=== PATIENT | male | born 1990 | race Caucasian/White ===

== ENCOUNTER 2018-08-27 22:41 | Observation (INO) ==
--- NOTE | 2018-08-27 23:01 | ED ---
HPI General Chief Complaint: Seizure Stated Complaint: Seizure Time Seen by Provider: 08/27/18 22:57 Source: patient and EMS Mode of arrival: EMS Limitations: no limitations History of Present Illness HPI Narrative: 27-year-old male patient who is previously healthy presents to the ER today brought in by EMS because parents states that they had witnessed the patient had becoming unresponsive, going down, had seizure-like activity for several minutes, and then was unresponsive. Parents thought that he may be he was not breathing and started CPR on him when EMS got to the scene, he was disoriented, and within about 5-10 minutes started to wake up and he is currently awake and alert in the ER. He does not remember what happened. He denies any injuries. He has not had any previous seizures history. He denies any alcohol use or recreational drug use. Modifying Factors: None Associated Signs & Symptoms: New onset seizure Risk Factors: None Related Data Home Medications Medication Instructions Recorded Confirmed No Known Home Medications 08/27/18 08/27/18 Allergies Allergy/AdvReac Type Severity Reaction Status Date / Time No Known Allergies Allergy Uncoded 05/11/14 17:16 Review of Systems ROS: all other systems reviewed are negative [facility] Medical History Medical History Patient denies medical problems (Acute) Surgical History Surgical History No history of previous surgery (Acute) Social History Social History Substance History: No History of Abuse Second Hand Smoke Exposure: No Smoking Status: Never smoker How Often Do You Have a Drink Containing Alcohol: Never Recent Travel in [facility] within the Last 8 Weeks: No Recent Out of Country Travel within the Last 8 Weeks: No Immunization History Tetanus Immunization: <5 Years Exam Narrative Exam Narrative: GENERAL: Well-developed young white male patient currently in mild distress. Awake and oriented x3. SKIN: Focused skin assessment warm/dry. HEAD: Atraumatic. Normocephalic. EYES: Pupils equal and round. No scleral icterus. No injection or drainage. ENT: No nasal bleeding or discharge. Mucous membranes pink and moist. NECK: Trachea midline. No JVD. CARDIOVASCULAR: Regular rate and rhythm. No murmur appreciated. RESPIRATORY: No accessory muscle use. Clear to auscultation. Breath sounds equal bilaterally. GASTROINTESTINAL: Abdomen soft, non-tender, nondistended. Hepatic and splenic margins not palpable. MUSCULOSKELETAL: No obvious deformities. No clubbing. No cyanosis. No edema. NEUROLOGICAL: Awake and alert. No obvious cranial nerve deficits. Motor grossly within normal limits. Normal speech. PSYCHIATRIC: Appropriate mood and affect; insight and judgment normal. Course Initial Documented Vital Signs Temperature 98.5 F 08/27/18 22:53 Pulse Rate 81 08/27/18 22:53 Respiratory Rate 15 08/27/18 22:53 Blood Pressure 135/81 08/27/18 22:53 Pulse Oximetry 96 08/27/18 22:53 Last Documented Vital Signs Temperature 98.5 F 08/27/18 22:53 Pulse Rate 83 08/27/18 22:56 Respiratory Rate 15 08/27/18 22:56 Blood Pressure 135/81 08/27/18 22:56 Pulse Oximetry 98 08/27/18 22:59 Medical Decision Making MDM Narrative Medical decision making narrative: EKG did not show any signs at this arrhythmia is. Lab work was fairly unremarkable. CT the brain was negative for any signs of any acute intracranial processes. Case is discussed with patient's parents who had witnessed the incident. Symptoms are most consistent with a seizure. However, patient has not had any previous history. At this point, my plan would be to admit him for further evaluation of new onset seizures. Case is discussed with Dr. Marroquin who is covering for [facility] to be admitted. Medical Screen Exam Complete: Yes Emergency Medical Condition: Yes Differential Diagnosis Differential Diagnosis: New onset seizure versus electrolyte abnormalities versus dysrhythmias Lab Data Lab results reviewed: Yes I reviewed the patient's lab results. Result diagrams: 08/27/18 23:02 08/27/18 23:02 Lab Results 08/27/18 08/27/18 08/28/18 Range/Units 23:02 23:02 00:01 WBC 5.6 (4.0-11.0) th/mm3 RBC 4.86 (4.50-5.90) mil/mm3 Hgb 15.7 (13.0-17.0) gm/dL Hct 43.2 (39.0-51.0) % MCV 88.8 (80.0-100.0) fL MCH 32.3 (27.0-34.0) pg MCHC 36.4 H (32.0-36.0) % RDW 12.6 (11.6-17.2) % Plt Count 194 (150-450) th/mm3 MPV 9.5 (7.0-11.0) fL Prelim Diff (Auto) Slide review pending Neut % (Auto) 49.1 (16.0-70.0) % Lymph % (Auto) 38.5 (9.0-44.0) % [place] % (Auto) 7.3 (0.0-8.0) % Eos % (Auto) 3.1 (0.0-4.0) % Baso % (Auto) 2.0 (0.0-2.0) % Neut # (Auto) 2.7 (1.8-7.7) th/mm3 Lymph # (Auto) 2.1 (1.0-4.8) th/mm3 [place] # (Auto) 0.4 (0.0-0.9) th/mm3 Eos # (Auto) 0.2 (0.0-0.4) th/mm3 Baso # (Auto) 0.1 (0.0-0.2) th/mm3 WBC Differential . Diff Scan Auto diff confirmed Differential Comment . Platelet Estimate Normal (Normal) Platelet Morphology Normal (Normal) Sodium 140 (136-145) meq/L Potassium 3.2 L (3.5-5.1) meq/L Chloride 104 (98-107) meq/L Carbon Dioxide 25.8 (21.0-32.0) meq/L Anion Gap 10 (5-15) meq/L BUN 19 H (7-18) mg/dL Creatinine 1.21 (0.60-1.30) mg/dL Estimated GFR 73 L (>89) mL/min Random Glucose 99 (74-106) mg/dL Calcium 9.1 (8.5-10.1) mg/dL Magnesium 2.3 (1.5-2.5) mg/dL Urine Opiates Screen Neg (Neg) Ur Barbiturates Screen Neg (Neg) Ur Amphetamines Screen Neg (Neg) U Benzodiazepines Scrn Neg (Neg) Urine Cocaine Screen Neg (Neg) U Cannabinoids Screen Neg (Neg) Serum Alcohol Less than 3 (0-5) mg/dL Imaging Data Attestation: I personally reviewed and interpreted this imaging study as follows : Radiologist's impression: Head CT 08/27/18 22:58 CONCLUSION: 1. Negative CT Head non contrast. . ECG Data Attestation: I personally reviewed and interpreted this ECG as follows: Interpretation: EKG shows NSR, no ST elevation or depression, and no arrhythmias. No significant T-wave inversions. Discharge Plan Discharge Disposition Patient Disposition: ED Admit(ED Internal Use Only) Discharge Condition Condition: Stable Discharge Order Discharge Orders: ED Use Only Admit Order (Routine); Ordered 08/28/18 Ordered By: Meli Davenport Discharge Details Anticipated Discharge Date: 08/28/18 Diagnosis: New onset seizure Physicians Team ED Provider: Meli Davenport Primary Care Provider: Von Ledesma Rxs /Orders / Referrals /Forms Prescriptions: No Action No Known Home Medications RF: 0 Discharge Interventions Interventions: Vital Signs Last Done: 08/27/18 22:56 Status ED Status: With Doctor
[2018-08-27 23:18] LABS: Baso # (Auto) 0.1 th/mm3 (0.0-0.2); Eos # (Auto) 0.2 th/mm3 (0.0-0.4); Eos % (Auto) 3.1 % (0.0-4.0); Hematocrit 43.2 % (39.0-51.0); Hemoglobin 15.7 gm/dL (13.0-17.0); Lymph # (Auto) 2.1 th/mm3 (1.0-4.8); Lymph % (Auto) 38.5 % (9.0-44.0); Mean Corpuscular Hemoglobin 32.3 pg (27.0-34.0); Mean Corpuscular Volume 88.8 fL (80.0-100.0); Mean Platelet Volume 9.5 fL (7.0-11.0); Mono # (Auto) 0.4 th/mm3 (0.0-0.9); Mono % (Auto) 7.3 % (0.0-8.0); Neut # (Auto) 2.7 th/mm3 (1.8-7.7); Neut % (Auto) 49.1 % (16.0-70.0); Platelet Count 194 th/mm3 (150-450); Red Blood Count 4.86 mil/mm3 (4.50-5.90); Red Cell Distribution Width 12.6 % (11.6-17.2); White Blood Count 5.6 th/mm3 (4.0-11.0)
[2018-08-27 23:19] LABS: Mean Corpuscular HGB Conc 36.4 % (32.0-36.0)
--- NOTE | 2018-08-27 23:20 | CT ---
EXAM DATE: 08/27/2018 11:16 PM EST AGE/SEX: 27 years / Male INDICATIONS: Syncope, seizure. CLINICAL DATA: This is the patient's initial encounter. Patient reports that signs and symptoms have been present for 1 day and indicates a pain score of 0/10. MEDICAL/SURGICAL HISTORY: None. None. RADIATION DOSE: 56.35 CTDI (mGy) COMPARISON: No prior exams available for comparison. TECHNIQUE: CT of the head without contrast. Using automated exposure control and adjustment of the mA and/or kV according to patient size, radiation dose was kept as low as reasonably achievable to ob tain optimal diagnostic quality images. DICOM format image data is available electronically for revi ew and comparison. FINDINGS: Cerebrum: The ventricles are normal for age. No evidence of midline shift, mass lesion, hemorrhage or acute infarction. No extraaxial fluid collections are seen. Posterior Fossa: The cerebellum and brainstem are intact. The 4th ventricle is midline. The cerebe llopontine angle is unremarkable. Extracranial: The visualized portion of the orbits is intact. Skull: The calvaria is intact. No evidence of skull fracture. CONCLUSION: 1. Negative CT Head non contrast. . Electronically signed by: Justin Yost MD Board Certified Radiologist 08/27/2018 11:18 PM EST
[2018-08-27 23:44] LABS: Anion Gap 10 meq/L (5-15); Blood Urea Nitrogen 19 mg/dL (7-18); Calcium 9.1 mg/dL (8.5-10.1); Carbon Dioxide 25.8 meq/L (21.0-32.0); Chloride 104 meq/L (98-107); Glomerular Filtration Rate 73 mL/min (>89); Glucose,Random 99 mg/dL (74-106); Magnesium 2.3 mg/dL (1.5-2.5); Potassium 3.2 meq/L (3.5-5.1); Sodium 140 meq/L (136-145)
[2018-08-27 23:52] LABS: Platelet Estimate Normal (Normal); Platelet Morphology Normal (Normal)
[2018-08-28 00:46] LABS: Amphetamine Screen,Urine Neg (Neg); Barbiturate Screen,Urine Neg (Neg); Cannabinoid Screen,Urine Neg (Neg); Cocaine Screen,Urine Neg (Neg)
[2018-08-28 00:47] LABS: Opiate Screen,Urine Neg (Neg)
--- NOTE | 2018-08-28 08:33 | ECG ---
Date Performed: 08/27/2018 Time Performed: 23:08:35 PTAGE: 27 years EKG: Sinus rhythm RIGHT BUNDLE BRANCH BLOCK ABNORMAL ECG NO PREVIOUS TRACING DOCTOR: Justin Nicholson Interpretating Date/Time 08/28/2018 08:32:57
--- NOTE | 2018-08-28 11:07 | P.HPIM ---
History of Present Illness Primary Care Physician: Von Ledesma MD Chief Complaint: possible seizure History of Present Illness: This is a 27 year old male patient who denies past medical history, denies illicit drug use, denies ETOH use and denies prior seizures. Patient presented to the ER last night with his parents for possible seizure. Patient does not recall the event. Information gathered from prior charting. Per ER report patient's parents stated that they had witnessed the patient becoming unresponsive, going down, had seizure-like activity for several minutes, and then was unresponsive. Parents thought that he maybe he was not breathing and started CPR on him. When EMS got to the scene, he was disoriented and combative. Patient started to wake up and he was awake and alert in the ER. He does not remember what happened. He denies any injuries. PMH: patient denies prior medical history PSxH: patient denies prior surgeries Social history: denies ETOH use, tobacco use or illicit drug use FMH: reviewed and noncontributory. Denies family history of seizures Medications and Allergies Allergies Allergy/AdvReac Type Severity Reaction Status Date / Time No Known Allergies Allergy Uncoded 05/11/14 17:16 Home Medications Medication Instructions Recorded Confirmed Type No Known Home Medications 08/27/18 08/27/18 History Active Medications: Active Medications Sodium Chloride (Ns Flush) 2 ml IV.FLUSH PRN PRN PRN Reason: FLUSH AFTER USING IV ACCESS Physical Exam Vital signs: Last Vital Signs Temp 98 F 08/28/18 07:33 Pulse 67 08/28/18 07:33 Resp 18 08/28/18 07:33 BP 107/66 08/28/18 07:33 Pulse Ox 97 08/28/18 07:33 Narrative: GENERAL: This is a well-nourished, well-developed patient, in no apparent distress. CARDIOVASCULAR: Regular rate and rhythm RESPIRATORY: Clear to auscultation. Breath sounds equal bilaterally. No wheezes , rales, or rhonchi. GASTROINTESTINAL: Abdomen soft, non-tender, nondistended. Normal active bowel sounds MUSCULOSKELETAL: Extremities without clubbing, cyanosis, or edema. NEURO: Alert & Oriented x4 to person, place, time, situation. Moves all ext x4 Results Labs CBC & Chem 7: 08/27/18 23:02 08/27/18 23:02 Caprini VTE Risk Assessment Caprini VTE Risk Assessment: No/Low Risk (score <= 1) Caprini Risk Assessment Model: Point Value = 1 Point Value = 2 Point Value = 3 Point Value = 5 Age 41-60 Minor surgery BMI > 25 kg/m2 Swollen legs Varicose veins or History of unexplained or recurrent spontaneous Oral contraceptives or hormone replacement Sepsis (< 1 month) Serious lung disease, including pneumonia (< 1 month) Abnormal pulmonary function Acute myocardial infarction Congestive heart failure (< 1 month) History of inflammatory bowel disease Medical patient at bed rest Age 61-74 Arthroscopic surgery Major open surgery (> 45 min) Laparoscopic surgery (> 45 min) Malignancy Confined to bed (> 72 hours) Immobilizing plaster cast Central venous access Age >= 75 History of VTE Family history of VTE Factor V Leiden Prothrombin [id number] Lupus anticoagulant Anticardiolipin antibodies Elevated serum homocysteine Heparin-induced thrombocytopenia Other congenital or acquired thrombophilia Stroke (< 1 month) Elective arthroplasty Hip, pelvis, or leg fracture Acute spinal cord injury (< 1 month) Prophylaxis Regimen: Total Risk Factor Score Risk Level Prophylaxis Regimen 0-1 Low Early ambulation 2 Moderate Order ONE of the following: *Sequential Compression Device (SCD) *Heparin 5000 units SQ BID 3-4 Higher Order ONE of the following medications: *Heparin 5000 units SQ TID *Enoxaparin/Lovenox 40 mg SQ daily (WT < 150 kg, CrCl > 30 mL/min) *Enoxaparin/Lovenox 30 mg SQ daily (WT < 150 kg, CrCl > 10-29 mL/min) *Enoxaparin/Lovenox 30 mg SQ BID (WT < 150 kg, CrCl > 30 mL/min) AND/OR *Sequential Compression Device (SCD) 5 or more Highest Order ONE of the following medications: *Heparin 5000 units SQ TID (Preferred with Epidurals) *Enoxaparin/Lovenox 40 mg SQ daily (WT < 150 kg, CrCl > 30 mL/min) *Enoxaparin/Lovenox 30 mg SQ daily (WT < 150 kg, CrCl > 10-29 mL/min) *Enoxaparin/Lovenox 30 mg SQ BID (WT < 150 kg, CrCl > 30 mL/min) AND *Sequential Compression Device (SCD) Assessment and Plan Plan This is a 27 year old male patient who denies past medical history, denies illicit drug use, denies ETOH use and denies prior seizures. Patient presented to the ER last night with his parents for possible seizure. Patient does not recall the event. Information gathered from prior charting. Per ER report patient's parents stated that they had witnessed the patient becoming unresponsive, going down, had seizure-like activity for several minutes, and then was unresponsive. Parents thought that he maybe he was not breathing and started CPR on him. When EMS got to the scene, he was disoriented and combative. Patient awoke within about 5-10 minutes started to wake up and he was awake and alert in the ER. He does not remember what happened. He denies any injuries. Patient also denies recent Possible new onset Seizures Head CT 08/27/[address] Head non contrast. Head MRI 08/28/18 1. Negative MR Brain non contrast. Seizure precautions EEG Ativan if needed for seizure Toxicology negative serum alcohol < 3 Consult to neurology Hypokalemia Potassium 3.2 on admission replaced DVT prophylaxis with SCDs Attending Attestation The exam, history, and the medical decision-making described in the above note were completed with the assistance of the mid-level provider. I reviewed and agree with the findings presented. I attest that I had a [id number] encounter with the patient on the same day, and personally performed and documented my assessment and findings in the medical record. Patient examined. Assessment and plan formulated with Velia Mohamud PA-C. I agree with the above. H&P: Quality VTE Deep Vein Thrombosis/Pulmonary Embolism Present on Admission: No
--- NOTE | 2018-08-28 13:03 | MR ---
EXAM DATE: 08/28/2018 12:57 PM EST AGE/SEX: 27 years / Male INDICATIONS: . New onset seizures. CLINICAL DATA: This is the patient's subsequent encounter. Patient reports that signs and symptoms h ave been present for 1 day and indicates a pain score of 0/10. MEDICAL/SURGICAL HISTORY: None. . Tympanostomy tubes. COMPARISON: [facility] [place], CT HEAD W/O CONTRAST, 08/27/2018. . TECHNIQUE: Multiplanar, multisequence examination of the brain was performed without contrast. FINDINGS: Cerebrum: The ventricles are normal for age. No evidence of midline shift, mass lesion, hemorrhage or acute infarction. No extraaxial fluid collections are seen. The pituitary gland and suprasellar cistern are normal in configuration. White Matter: No significant signal abnormalities are seen in the white matter. Posterior Fossa: The cerebellum and brainstem are intact. The 4th ventricle is midline. The cerebel lopontine angle is unremarkable. The cerebellar tonsils are normal in position. Diffusion Imaging: No focal areas of restricted diffusion are seen. No evidence of acute infarction . Extracranial: The visualized portions of the orbits and paranasal sinuses are unremarkable. CONCLUSION: 1. Negative MR Brain non contrast. Electronically signed by: Shahab Suarez MD Board Certified Radiologist 08/28/2018 1:02 PM EST
--- NOTE | 2018-08-28 16:55 | P.CONNEU ---
History of Present Illness Service: Neurology Primary Care Provider: Von Ledesma MD Chief Complaint: possible seizure History of Present Illness: 27-year-old male admitted for possible seizure activity. [facility] by his parents yesterday evening making grunting type sounds fully open the door to his room in some is on the floor having clonic type of activity eyes rolled back frothing at the mouth reduced responsiveness. EVAC was called. He will be confused slightly agitated upon arrival. Brought in further evaluation. No further events overnight. He does not recollect the event does not recollect having any aura prior to the episode. MRI brain scan normal. Glucose calcium sodium magnesium normal. Slightly low potassium. Urine drug screen negative. Denies any illicit drug use or any sleep deprivation. No history of seizure activity history of head injury although has had couple concussions playing basketball in school in the past. No history of febrile seizures no family history of seizures no history of [employer]CHNICIAN infection. Review of Systems All other systems reviewed negative except as stated in HPI PMFSH - History History Provided By: Patient - Medical History Medical History: Medical History (Last Reviewed 08/27/18 @ 23:00 by Meli Davenport MD) Patient denies medical problems - Surgical History Surgical History: Surgical History (Last Reviewed 08/27/18 @ 23:00 by Meli Davenport MD) No history of previous surgery - Tobacco History Second Hand Smoke Exposure: No Tobacco Use In Past 30 Days: No Smoking Status: Never smoker - Alcohol History How Often Do You Have a Drink Containing Alcohol: Monthly or less - Substance Use History Substance History: No History of Abuse - Travel History Recent Travel in the [facility] Within the Last 8 Weeks: No Recent Travel Out of the Country Within the Last 8 Weeks: No - Immunization History Tetanus Immunization: <5 Years Medications and Allergies Active Medications: Active Medications Lorazepam (Ativan Inj) 1 mg IV.PUSH Q4H PRN PRN Reason: SEIZURES Sodium Chloride (Ns Flush) 2 ml IV.FLUSH PRN PRN PRN Reason: FLUSH AFTER USING IV ACCESS Allergies Allergy/AdvReac Type Severity Reaction Status Date / Time No Known Allergies Allergy Uncoded 05/11/14 17:16 Home Medications Medication Instructions Recorded Confirmed Type No Known Home Medications 08/27/18 08/27/18 History Exam Vital signs: Vital Signs 08/27/18 22:53 08/27/18 22:56 08/27/18 22:59 Temperature 98.5 F Pulse Rate 81 83 Respiratory Rate 15 15 Blood Pressure 135/81 135/81 Pulse Oximetry 96 98 98 08/28/18 02:36 08/28/18 03:39 08/28/18 06:44 Temperature 97.9 F 97.3 F L Pulse Rate 74 70 63 Respiratory Rate 17 16 16 Blood Pressure 134/70 119/72 118/63 Pulse Oximetry 97 97 96 08/28/18 07:33 08/28/18 11:52 Temperature 98 F 97.2 F L Pulse Rate 67 66 Respiratory Rate 18 18 Blood Pressure 107/66 118/57 L Pulse Oximetry 97 97 Intake & Output 08/27/18 08/28/18 08/28/18 18:59 06:59 18:59 Weight 72.575 kg Other: # Voids 1 Date of Last Bowel Movement 08/27/18 08/27/18 Weight On Admission 72.575 kg Narrative: GENERAL: in NAD, SKIN: Warm and dry. HEAD: Atraumatic. Normocephalic. EYES: Pupils equal and round. No scleral icterus. ENT: No nasal bleeding or discharge. Mucous membranes pink and moist. NECK: Trachea midline. No JVD. RESPIRATORY: No accessory muscle use. GASTROINTESTINAL: Abdomen soft, non-tender, nondistended. MUSCULOSKELETAL: Extremities without clubbing, cyanosis, or edema. No obvious deformities. NEUROLOGICAL: Awake and alert. No aphasia, fluent articulate, No facial asymmetry, OU 3-2mm, eomi, VFF, No drift, Motor grossly within normal limits. Five out of 5 muscle strength in the arms and legs. Tone normal in all 4 limbs, Sensory normal in all 4 extremities to pin, brisk reflexes 2-3+ left leg slightly brisker than the right knee jerk Msr 1-2+ sym, no clonus, planterflexor , PSYCHIATRIC: Appropriate mood and affect; insight and judgment normal. - Constitutional no acute distress - Routine HEENT Exam Head: Present: normocephalic Eye: Present: EOMI Results - Labs CBC & Chem 7: 08/27/18 23:02 08/27/18 23:02 Labs: Laboratory Results - last 24 hr 08/27/18 08/27/18 08/28/18 23:02 23:02 00:01 WBC 5.6 RBC 4.86 Hgb 15.7 Hct 43.2 MCV 88.8 MCH 32.3 MCHC 36.4 H RDW 12.6 Plt Count 194 MPV 9.5 Prelim Diff (Auto) Slide review pending Neut % (Auto) 49.1 Lymph % (Auto) 38.5 [place] % (Auto) 7.3 Eos % (Auto) 3.1 Baso % (Auto) 2.0 Neut # (Auto) 2.7 Lymph # (Auto) 2.1 [place] # (Auto) 0.4 Eos # (Auto) 0.2 Baso # (Auto) 0.1 WBC Differential . Diff Scan Auto diff confirmed Differential Comment . Platelet Estimate Normal Platelet Morphology Normal Sodium 140 Potassium 3.2 L Chloride 104 Carbon Dioxide 25.8 Anion Gap 10 BUN 19 H Creatinine 1.21 Estimated GFR 73 L Random Glucose 99 Calcium 9.1 Magnesium 2.3 Urine Opiates Screen Neg Ur Barbiturates Screen Neg Ur Amphetamines Screen Neg U Benzodiazepines Scrn Neg Urine Cocaine Screen Neg U Cannabinoids Screen Neg Serum Alcohol Less than 3 - Imaging Impressions Head CT 08/27/18 22:58 CONCLUSION: 1. Negative CT Head non contrast. . Head MRI 08/28/18 00:00 CONCLUSION: 1. Negative MR Brain non contrast. Review/Management - Diagnosis (1) New onset seizure Code(s): R56.9 - Unspecified convulsions Status: Acute Current Visit: Yes - Review/Management Plan: New onset seizure unprovoked with no family history EEG demonstrating frontal sharp waves occurring paroxysmally. Probable underlying tendency towards epilepsy Recommendations We will start Lamictal 25 mg twice daily Side effects benefits discussed medication including Dunlap-Yomi syndrome with rash, liver dysfunction, mood changes, etc. Patient and father agree to treatment Give 1 dose of Ativan tonight po Stable no further episodes discharge planning in the a.m. follow-up in the outpatient setting Seizure precaution No driving, operating any heavy machinery or dangerous machinery, swimming alone for at least 6 months of being seizure, spell free.
--- NOTE | 2018-08-28 17:29 | MG ---
cc: Ehsan Sommer MD EEG #[id number]. INDICATION: Good posterior rhythm, 8-9 Hz alpha activity, 20-50 microvolts, low-amplitude beta in the frontal channels. Good anterior to posterior gradient. Paroxysmal frontal sharp transients noted. Frontal sharp waves. possible frontal spike wave 78. Went into drowsy stage I sleep, reduced driving and photic stimulation and began the recording. Nasir wave discharge noted 19. INTERPRETATION: Paroxysmal frontally dominated sharp discharges occurring. However, no active seizures, awake/sleep electroencephalogram. Clinical correlation. MD ERON Elizabeth/deshaun/tim , 04:33 PM , 04:39 PM
[2018-08-28 19:05] LABS: Thyroid Stimulating Hormone 0.975 uIU/mL (0.358-3.740); Vitamin B12 1028 pg/mL (193-986)
[2018-08-28] MEDS: lamoTRIgine 25 MG TABLET PO SCH (20:45)
[2018-08-28] MEDS ORDERED: LORazepam 1 MG Tablet PO ONE (21:00)
[2018-08-29] MEDS: lamoTRIgine 25 MG TABLET PO SCH (08:20)
--- NOTE | 2018-08-29 11:45 | P.DS ---
DS: Providers Date of admission: 08/28/18 01:38 Primary care physician: Von Ledesma MD Consults: 08/28/18 10:16 Consult to Neurology Routine Consulting Provider: Ehsan Sommer Reason for Consultation: New onset Seizures Notified:: Office Spoke with:: abebe Date Notified:: 08/28/18 Time Notified:: 10:20 Ordering Provider: LIANNA Brief History from admission: This is a 27 year old male patient who denies past medical history, denies illicit drug use, denies ETOH use and denies prior seizures. Patient presented to the ER last night with his parents for possible seizure. Patient does not recall the event. Information gathered from prior charting. Per ER report patient's parents stated that they had witnessed the patient becoming unresponsive, going down, had seizure-like activity for several minutes, and then was unresponsive. Parents thought that he maybe he was not breathing and started CPR on him. When EMS got to the scene, he was disoriented and combative. Patient started to wake up and he was awake and alert in the ER. He does not remember what happened. He denies any injuries. PMH: patient denies prior medical history PSxH: patient denies prior surgeries Social history: denies ETOH use, tobacco use or illicit drug use FMH: reviewed and noncontributory. Denies family history of seizures DS: Diagnosis Discharge Diagnosis (1) New onset seizure: Status: Acute DS: Summary This is a 27 year old male patient who denies past medical history, denies illicit drug use, denies ETOH use and denies prior seizures. Patient presented to the ER last night with his parents for possible seizure. Patient does not recall the event. Information gathered from prior charting. Per ER report patient's parents stated that they had witnessed the patient becoming unresponsive, going down, had seizure-like activity for several minutes, and then was unresponsive. Parents thought that he maybe he was not breathing and started CPR on him. When EMS got to the scene, he was disoriented and combative. Patient awoke within about 5-10 minutes started to wake up and he was awake and alert in the ER. He does not remember what happened. He denies any injuries. Patient also denies recent New onset Seizures Head CT 08/27/[address] Head non contrast. Head MRI 08/28/18 1. Negative MR Brain non contrast. Seizure precautions Ativan if needed for seizure Toxicology negative serum alcohol < 3 Consult to neurology, appreciated input EEG demonstrating frontal sharp waves occurring paroxysmally. Probable underlying tendency towards epilepsy Neurology Recommendations Lamictal 25 mg twice daily Side effects benefits discussed medication including Dunlap-Yomi syndrome with rash, liver dysfunction, mood changes, etc. Patient and father agree to treatment Stable no further episodes discharge planning in the a.m. follow-up in the outpatient setting Seizure precaution No driving, operating any heavy machinery or dangerous machinery, swimming alone Hypokalemia Potassium 3.2 on admission replaced The exam, history, and the medical decision-making described in the above note were completed with the assistance of the mid-level provider. I reviewed and agree with the findings presented. I attest that I had a [id number] encounter with the patient on the same day, and personally performed and documented my assessment and findings in the medical record. Patient examined. Assessment and plan formulated with Velia Mohamud PA-C. I agree with the above. Case d/w pt and father at bedside. Pt instructed NO driving until seizure free for 6 months or otherwise cleared to drive by Neurology, Dr. Perez. Pt also instructed NO swimming alone, NO baths, NO use of heavy machinery. No use of electric/automatic saws or other cutting devices. Pt started on lamictal 25mg BID to be further titrated by Neurology, dr. Perez. Pt to f/u with Dr. Perez in 1-2 weeks. All questions answered to the best of my ability. Time Spent with Patient Total time spent providing and/or coordinating discharge services: Quality: VTE Deep Vein Thrombosis/Pulmonary Embolism Present on Admission: No Exam Narrative Exam Narrative: GENERAL: This is a well-nourished, well-developed patient, in no apparent distress. CARDIOVASCULAR: Regular rate and rhythm without murmurs, gallops, or rubs. RESPIRATORY: Clear to auscultation. Breath sounds equal bilaterally. No wheezes , rales, or rhonchi. GASTROINTESTINAL: Abdomen soft, non-tender, nondistended. Normal active bowel sounds MUSCULOSKELETAL: Extremities without clubbing, cyanosis, or edema. NEURO: Alert & Oriented x4 to person, place, time, situation. Moves all ext x4 Results Labs on day of discharge: Labs from last 24 hours 08/28/18 08/28/18 17:51 17:51 Ammonia Less than 10 L Vitamin B12 1028 H Folate Greater than 20.0 H TSH 0.975 Impressions ITS Impressions Head CT 08/27/18 22:58 CONCLUSION: 1. Negative CT Head non contrast. . Head MRI 08/28/18 00:00 CONCLUSION: 1. Negative MR Brain non contrast. Discharge Plan Discharge Disposition Patient Disposition: 01 Discharge Home Discharge Condition Condition: Stable Discharge Order Discharge Orders: Discharge Order (Routine); Ordered 08/29/18 Ordered By: Velia Mohamud Discharge Details Anticipated Discharge Date: 08/29/18 Physicians Team ED Provider: Meli Davenport Primary Care Provider: Von Ledesma Attending Provider: Santos Gastelum Other Providers: Ehsan Sommer Rxs /Orders / Referrals /Forms Prescriptions: New lamotrigine [Lamictal] 25 mg Tablet 25 mg PO BID 30 Days Qty: 60 RF: 0 clonazepam [Klonopin] 1 mg tablet 1 mg PO QID PRN (Reason: seizure activity) Qty: 7 RF: 0 No Action No Known Home Medications RF: 0 Referrals: Von Ledesma MD [Primary Care Provider] - See Instructions (follow up in 1 week) Ehsan Sommer MD [Physician] - See Instructions (Follow up in 1 week) Discharge Instructions Patient Printed Instructions: Lamotrigine (By mouth), New-Onset Seizure in Adults (DC) Additional Instructions: No driving, operating any heavy machinery or dangerous machinery, swimming alone until cleared by Dr. Sommer Status ED Status: Left Department
== END 2018-08-29 13:03 | disposition home or self-care (01) ==
LOC: NEPC 22:41 → NEDA 22:41 → NEPGCP 08-28 02:49 → N06 08-28 06:27
PROVIDERS: ADMIT Hospitalist; ATTEND Hospitalist